=== PATIENT | female | born 1975 | race Hispanic/Latino ===

== ENCOUNTER 2017-05-10 17:50 | Emergency (ER) | payer MEDICAID ==
[2017-05-10 18:35] VITALS: RESP 18
--- NOTE | 2017-05-10 20:07 | ED PDOC ---
Arrival/HPI - General Chief Complaint: Abdominal Pain Time Seen by Provider: 05/10/17 19:52 Historian: Patient - History of Present Illness Narrative History of Present Illness (Text): 05/10/17 20:00 A 41 year old female, with no past medical history, presents to the emergency department complaining of abdominal pain. Patient reports she came from [facility] and had evaluation of symptom there. She was told she may have intestinal parasites or possible blockage. Patient is uncertain of exact result of tests. Patient states symptom began during [place]. Has been a resident of [place] for 6 years. Currently presents with abdominal discomfort and headache discomfort. Patient denies any fever, chills, vomiting, or any other complaints at this time. Patient has had small bowel movements. No PMD Past Medical History - Provider Review Nursing Documentation Reviewed: Yes - Infectious Disease Hx of Infectious Diseases: None - Psychiatric Hx Substance Use: No Family/Social History - Physician Review Nursing Documentation Reviewed: Yes Family/Social History: No Known Family HX Smoking Status: Light Smoker < 10 Cigarettes Daily Hx Alcohol Use: Yes Frequency of alcohol use: Socially Hx Substance Use: No Allergies/Home Meds Allergies/Adverse Reactions: Allergies latex Allergy (Verified 05/10/17 18:36) ANAPHYLAXIS Penicillins Allergy (Verified 05/10/17 18:36) ANAPHYLAXIS Sulfa Allergy (Uncoded 05/10/17 18:36) ANAPHYLAXIS Home Medications: Home Meds Medication Instructions Recorded Confirmed No Known Home Med 05/10/17 05/10/17 Review of Systems - Physician Review All systems were reviewed & negative as marked: Yes - Review of Systems Constitutional: absent: Fevers, Night Sweats Gastrointestinal: Abdominal Pain (abdominal discomfort). absent: Vomiting Neurological: Headache (headache discomfort) Physical Exam Vital Signs Reviewed: Yes Vital Signs Temp Pulse Resp BP Pulse Ox 05/10/17 23:31 98.3 F 71 18 114/66 100 05/10/17 18:29 98.8 F 83 18 117/76 99 Temperature: Afebrile Blood Pressure: Normal Pulse: Regular Respiratory Rate: Normal Appearance: Positive for: Well-Appearing Pain Distress: None Mental Status: Positive for: Alert and Oriented X 3 - Systems Exam Head: Present: Atraumatic, Normocephalic Pupils: Present: PERRL Extroacular Muscles: Present: EOMI Conjunctiva: Present: Normal Mouth: Present: Moist Mucous Membranes Neck: Present: Normal Range of Motion Respiratory/Chest: Present: Clear to Auscultation, Good Air Exchange. No: Respiratory Distress, Accessory Muscle Use Cardiovascular: Present: Regular Rate and Rhythm, Normal S1, S2. No: Murmurs Abdomen: Present: Normal Bowel Sounds. No: Tenderness, Distention, Peritoneal Signs Back: Present: Normal Inspection Upper Extremity: Present: Normal Inspection. No: Cyanosis, Edema Lower Extremity: Present: Normal Inspection. No: Edema Neurological: Present: GCS=15, CN II-XII Intact, Speech Normal Skin: Present: Warm, Dry, Normal Color. No: Rashes Psychiatric: Present: Alert, Oriented x 3, Normal Insight, Normal Concentration Medical Decision Making ED Course and Treatment: 05/10/17 20:05 Impression: 41 year old female with abdominal discomfort and headache discomfort. Physical exam is benign. Plan: -- Abd/Pelvis CT -- Head CT -- Chest X-ray -- Labs -- Urinalysis -- Reassess and disposition Progress Notes: 05/10/17 21:25 Reviewed radiology, Chest X-ray shows no acute processes. CT Head shows: Brain: No acute intracranial hemorrhage. No significant white matter disease. No edema. Ventricles: No significant ventriculomegaly. Bones: No acute displaced fracture. Sinuses: Unremarkable as visualized. No acute sinusitis. Mastoid air cells: Unremarkable as visualized. No mastoid effusion. IMPRESSION: No acute intracranial hemorrhage, or suspicious mass effect. 05/10/17 22:14 CT Abdomen and Pelvis shows: Lower thorax: The bilateral lung bases are clear. ABDOMEN: Liver: The liver is enlarged and demonstrates diffuse fatty infiltration. Gallbladder and bile ducts: The gallbladder is decompressed. No calcified stones. No significant intra- or extrahepatic biliary ductal dilation. Pancreas: Enhances homogeneously. No ductal dilation. No discrete mass. Spleen: No acute findings. Adrenals: No acute findings. Kidneys and ureters: No acute findings. No hydronephrosis or renal calculi. No discrete solid mass. PELVIS: Bladder: No acute findings. Reproductive: 2 involuting cysts within the right ovary, the largest measuring 19 mm in greatest dimension. Appendix: The appendix is of normal caliber (series 2, image 98) . ABDOMEN and PELVIS: Stomach and bowel: No obstruction. No mucosal thickening. Peritoneum: No significant fluid collection. No free air. Lymph nodes: No pathologically enlarged lymph nodes. Vasculature: Unremarkable. Bones: No acute fracture. IMPRESSION: 2 involuting cysts within the right ovary, for which pelvic ultrasound may be performed for confirmation (if the patient is clinically able). Normal appendix. 05/11/17 00:20 Stool for ovum/parasite cultures were to be ordered. Pt refusing to give stool sample at this time, states she would prefer to follow-up with infectious disease doctor outpt. - Lab Interpretations Lab Results: 05/10/17 19:50 05/10/17 19:50 Lab Results 05/10/17 19:50: Urine Color Yellow, Urine Appearance Clear, Urine pH 6.0, Ur Specific [place] >= 1.030, Urine Protein Negative, Urine Glucose (UA) Negative, Urine Ketones Negative, Urine Blood Small H, Urine Nitrate Negative, Urine Bilirubin Negative, Urine Urobilinogen 0.2, Ur Leukocyte Esterase Negative, Urine RBC 5 - 10, Urine WBC 2 - 5, Ur Epithelial Cells 4 - 5, Urine Bacteria Small, Urine Other Mucus, Urine HCG, Qual Negative 05/10/17 19:50: WBC 8.2, RBC 3.78, Hgb 11.5 L, Hct 35.7 L, MCV 94.4, MCH 30.4, MCHC 32.2, RDW 14.2, Plt Count 242, MPV 11.6 H, Gran % 58.9, Lymph % (Auto) 26.0 , Lyon % (Auto) 10.1 H, Eos % (Auto) 4.4, Baso % (Auto) 0.6, Gran # 4.54, Lymph # 2.0, Lyon # 0.8 H, Eos # 0.3, Baso # 0.05 05/10/17 19:50: Sodium 141, Potassium 3.4 L, Chloride 104, Carbon Dioxide 25, Anion Gap 15, BUN 15, Creatinine 0.8, Est GFR ( Amer) > 60, Est GFR (Non- Af Amer) > 60, Random Glucose 70, Calcium 9.1, Total Bilirubin 0.4, AST 20, ALT 30, Alkaline Phosphatase 45, Total Protein 7.4, Albumin 4.0, Globulin 3.4, Albumin/Globulin Ratio 1.2, Lipase 111 I have reviewed the lab results: Yes - RAD Interpretation Radiology Orders: 05/10/17 20:01 HEAD W/O CONTRAST [CT] Stat CHEST PORTABLE [RAD] Stat 05/10/17 20:02 ABD & PELVIS IV CONTRAST ONLY [CT] Stat Velvet Steamer: ED Physician, Radiologist - Medication Orders Current Medication Orders: Discontinued Medications Sodium Chloride (Sodium Chloride 0.9%) 1,000 mls @ 100 mls/hr IV .Q10H LAZARA Last Admin: 05/11/17 00:27 Dose: 100 mls/hr eMAR Start Stop Document 05/11/17 00:27 WILL (Rec: 05/11/17 00:27 WILL [id number]) Intravenous Solution Start Date 05/10/17 Start Time 20:50 End Date 05/11/17 End time 00:27 Total Infusion Time 217 Ketorolac Tromethamine (Toradol) 30 mg IVP ONCE ONE Stop: 05/10/17 22:18 Last Admin: 05/10/17 22:34 Dose: 30 mg MAR Pain Assessment Document 05/10/17 22:34 HI (Rec: 05/10/17 22:34 HI [id number]) Pain Reassessment Is this a pain reassessment? Yes Sleep Is patient sleeping during reassessment? No Presence of Pain Presence of Pain Yes Location Pain Location Body Site Abdomen IVP Administration Document 05/10/17 22:34 HI (Rec: 05/10/17 22:34 HI [id number]) Charges for Administration # of IVP Administrations 1 Potassium Chloride (K-Dur 20 Meq Er Tab) 20 meq PO STAT STA Stop: 05/10/17 22:45 Last Admin: 05/10/17 23:21 Dose: 20 meq - Scribe Statement The provider has reviewed the documentation as recorded by the Tomasz Deras Provider Scribe Attestation: All medical record entries made by the Tomasz were at my direction and personally dictated by me. I have reviewed the chart and agree that the record accurately reflects my personal performance of the history, physical exam, medical decision making, and the department course for this patient. I have also personally directed, reviewed, and agree with the discharge instructions and disposition. Disposition/Present on Arrival - Present on Arrival Any Indicators Present on Arrival: No History of DVT/PE: No History of Uncontrolled Diabetes: No Urinary Catheter: No History of Decub. Ulcer: No History Surgical Site Infection Following: None - Disposition Have Diagnosis and Disposition been Completed?: Yes Diagnosis: Abdominal pain Disposition: HOME/ ROUTINE Disposition Time: 00:25 Patient Plan: Discharge Condition: STABLE Discharge Instructions (ExitCare): Abdominal Pain (ED) Additional Instructions: Follow up with your doctor this week/any recurrent worsening symptoms return to the emergency room Referrals: Stephon Alanis MD [Staff Provider] - Follow up with primary PCP,NO [Primary Care Provider] - Follow up with primary Forms: [employer] (Estonian)
[2017-05-10] MEDS: Sodium Chloride 0.9% 1,000 ML IV SCH (20:13)
[2017-05-10 20:34] LABS: HEMATOCRIT 35.7 % (36.0-48.0); MEAN CELL VOLUME 94.4 fl (80.0-105.0); MEAN CORPUSCULAR HEMOGLOBIN 30.4 pg (25.0-35.0); MEAN CORPUSCULAR HGB CONC 32.2 g/dl (31.0-37.0); MEAN PLATELET VOLUME 11.6 fl (7.0-11.0); RED CELL DISTRIBUTION WIDTH 14.2 % (11.5-14.5); URINE BILIRUBIN NEGATIVE (NEGATIVE); URINE BLOOD SMALL (NEGATIVE); URINE GLUCOSE (UA) NEGATIVE (NEGATIVE); URINE KETONE NEGATIVE (NEGATIVE); URINE LEUKOCYTE ESTERASE NEGATIVE Leu/uL (NEGATIVE); URINE PROTEIN NEGATIVE mg/dL (<30 mg/dL); URINE UROBILINOGEN 0.2 E.U./dL (<1 E.U./dL); WHITE BLOOD COUNT 8.2 10^3/ul (4.5-11.0)
[2017-05-10 20:37] LABS: URINE APPEARANCE CLEAR (CLEAR); URINE COLOR YELLOW (YELLOW)
[2017-05-10 20:43] LABS: ALB/GLOB RATIO 1.2 (1.1-1.8); ALKALINE PHOSPHATASE 45 U/L (38-126); ALT/SGPT 30 U/L (7-56); AST/SGOT 20 U/L (14-36); BILIRUBIN,TOTAL 0.4 mg/dL (0.2-1.3); BLOOD UREA NITROGEN 15 mg/dL (7-21); CALCIUM 9.1 mg/dL (8.4-10.5); CARBON DIOXIDE 25 mmol/L (21-33); CHLORIDE 104 mmol/L (98-107); GFR AFRICAN-AMERICAN > 60; GLUCOSE,RANDOM 70 mg/dL (70-110); LIPASE 111 U/L (23-300); POTASSIUM 3.4 mmol/L (3.6-5.0); SODIUM 141 mmol/L (132-148); TOTAL PROTEIN 7.4 g/dL (5.8-8.3)
[2017-05-10 20:47] LABS: URINE BACTERIA SMALL (NEG)
[2017-05-10] MEDS ORDERED: Iohexol 350 MG/100 ML VIAL ONE (20:55)
--- NOTE | 2017-05-10 21:22 | CT ---
EXAM: CT Head Without Intravenous Contrast CLINICAL HISTORY: 41 years old, female; Pain; Headache; Tension TECHNIQUE: Axial computed tomography images of the head/brain without intravenous contrast. All CT scans at this facility use one or more dose reduction techniques, viz.: automated exposure control; ma/kV adjustment per patient size (including targeted exams where dose is matched to indication; i.e. head); or iterative reconstruction technique. COMPARISON: No relevant prior studies available. FINDINGS: Brain: No acute intracranial hemorrhage. No significant white matter disease. No edema. Ventricles: No significant ventriculomegaly. Bones: No acute displaced fracture. Sinuses: Unremarkable as visualized. No acute sinusitis. Mastoid air cells: Unremarkable as visualized. No mastoid effusion. IMPRESSION: No acute intracranial hemorrhage, or suspicious mass effect.
--- NOTE | 2017-05-10 22:11 | CT ---
EXAM: CT Abdomen and Pelvis With Intravenous Contrast CLINICAL HISTORY: 41 years old, female; Pain; Abdominal pain; Acute; Patient HX: Constipation TECHNIQUE: Axial computed tomography images of the abdomen and pelvis with intravenous contrast. All CT scans at this facility use one or more dose reduction techniques, viz.: automated exposure control; ma/kV adjustment per patient size (including targeted exams where dose is matched to indication; i.e. head); or iterative reconstruction technique. MIP reconstructed images were created and reviewed. Coronal and sagittal reformatted images were created and reviewed. CONTRAST: 100 mL of OMNI administered intravenously. COMPARISON: No relevant prior studies available. FINDINGS: Lower thorax: The bilateral lung bases are clear. ABDOMEN: Liver: The liver is enlarged and demonstrates diffuse fatty infiltration. Gallbladder and bile ducts: The gallbladder is decompressed. No calcified stones. No significant intra- or extrahepatic biliary ductal dilation. Pancreas: Enhances homogeneously. No ductal dilation. No discrete mass. Spleen: No acute findings. Adrenals: No acute findings. Kidneys and ureters: No acute findings. No hydronephrosis or renal calculi. No discrete solid mass. PELVIS: Bladder: No acute findings. Reproductive: 2 involuting cysts within the right ovary, the largest measuring 19 mm in greatest dimension. Appendix: The appendix is of normal caliber (series 2, image 98) . ABDOMEN and PELVIS: Stomach and bowel: No obstruction. No mucosal thickening. Peritoneum: No significant fluid collection. No free air. Lymph nodes: No pathologically enlarged lymph nodes. Vasculature: Unremarkable. Bones: No acute fracture. IMPRESSION: 2 involuting cysts within the right ovary, for which pelvic ultrasound may be performed for confirmation (if the patient is clinically able). Normal appendix.
[2017-05-10 22:33] LABS: BASO # 0.05 K/mm3 (0.0-2.0); BASO % 0.6 % (0.0-3.0); EOS # 0.3 (0.0-0.7); EOS % 4.4 % (1.5-5.0); GRAN # 4.54 (1.4-6.5); GRAN % 58.9 % (50.0-68.0); MONO # 0.8 (0.1-0.6); MONO % 10.1 % (1.0-6.0)
[2017-05-10] MEDS ORDERED: Potassium Chloride 20 mEq ER Tab PO STA (22:44)
[2017-05-10 23:32] VITALS: BP 114/66; PULSE 71; TEMP 98.3; O2SAT 100
[2017-05-11] MEDS: Sodium Chloride 0.9% 1,000 ML IV SCH (00:27)
--- NOTE | 2017-05-11 08:56 | RAD ---
HISTORY: abdominal pain COMPARISON: No prior. FINDINGS: LUNGS: No active pulmonary disease. PLEURA: No significant pleural effusion identified, no pneumothorax apparent. CARDIOVASCULAR: Normal. OSSEOUS STRUCTURES: No significant abnormalities. VISUALIZED UPPER ABDOMEN: Normal. OTHER FINDINGS: None. IMPRESSION: No active disease.
== END 2017-05-11 00:32 | disposition home or self-care (01) ==
LOC: ED 17:50
DX: R10.9 Unspecified abdominal pain (principal); F17.210 Nicotine dependence, cigarettes, uncomplicated; Z88.0 Allergy status to penicillin
CPT/HCPCS: 70450; 71010; 74177; 80053; 81001; 83690; 84703; 85025; 85027; 96360; 96361; 96374; 99284; J1885; J7040; Q9967

== ENCOUNTER 2017-05-14 12:42 | Emergency (ER) | payer MEDICAID ==
[2017-05-14 12:49] VITALS: BP 103/78; PULSE 95; RESP 18; TEMP 98.3; O2SAT 100
--- NOTE | 2017-05-14 14:12 | ED PDOC ---
Arrival/HPI - General Chief Complaint: Allergic Reaction Time Seen by Provider: 05/14/17 13:08 Historian: Patient - History of Present Illness Narrative History of Present Illness (Text): 05/14/17 41-year-old female presents today with concerns for allergic reaction. Patient states she was seen in the emergency room 2 days ago and had a CAT scan with IV contrast. Patient states she was fine and started to feel a little itchy and then today noticed that she had a rash on the chest the back and the extremities. Patient states she was feeling like she may have been having an itchy throat. Denies SOB at present time. Symptom Course: Worsening Quality: Other (itchy, no pain) Past Medical History - Provider Review Nursing Documentation Reviewed: Yes - Travel History Have you recently traveled outside [place] w/in the past 3 mons?: No - Infectious Disease Hx of Infectious Diseases: None - Psychiatric Hx Substance Use: No Family/Social History - Physician Review Nursing Documentation Reviewed: Yes Family/Social History: Unknown Family HX Smoking Status: Light Smoker < 10 Cigarettes Daily Hx Alcohol Use: Yes Hx Substance Use: No Allergies/Home Meds Allergies/Adverse Reactions: Allergies latex Allergy (Verified 05/14/17 12:49) ANAPHYLAXIS Penicillins Allergy (Verified 05/14/17 12:49) ANAPHYLAXIS Sulfa Allergy (Uncoded 05/14/17 12:49) ANAPHYLAXIS Review of Systems - Review of Systems Constitutional: absent: Fatigue, Fevers ENT: Sore Throat. absent: Sinus Congestion Respiratory: absent: SOB, Cough Cardiovascular: absent: Chest Pain, Palpitations Gastrointestinal: absent: Abdominal Pain, Nausea, Vomiting Genitourinary Female: absent: Dysuria, Frequency, Hematuria Musculoskeletal: absent: Arthralgias, Back Pain, Neck Pain Skin: Rash, Pruritis Neurological: absent: Headache, Dizziness Psychiatric: absent: Anxiety, Depression, Suicidal Ideation Physical Exam Vital Signs Reviewed: Yes Vital Signs Temp Pulse Resp BP Pulse Ox 05/14/17 12:46 98.3 F 95 H 18 103/78 100 05/14/17 12:42 98.3 F 95 H 18 103/78 100 Temperature: Afebrile Blood Pressure: Normal Pulse: Regular Respiratory Rate: Normal Appearance: Positive for: Well-Appearing, Non-Toxic, Comfortable Pain Distress: None Mental Status: Positive for: Alert and Oriented X 3 - Systems Exam Head: Present: Atraumatic Mouth: Present: Moist Mucous Membranes Pharnyx: Present: Normal. No: EXUDATE, Uvular Deviation, Muffled/Hoarse Voice, Strider Nose (External): Present: Atraumatic Nose (Internal): Present: Normal Inspection Neck: Present: Normal Range of Motion Respiratory/Chest: Present: Clear to Auscultation Cardiovascular: Present: Regular Rate and Rhythm Abdomen: No: Tenderness Upper Extremity: Present: Normal ROM Lower Extremity: Present: Normal ROM Neurological: Present: GCS=15, Speech Normal Skin: Present: Warm, Dry, Rashes (Multiple erythematous papules noted on the chest abdomen and upper extremities bilaterally.), Normal Color Psychiatric: Present: Alert, Oriented x 3 Medical Decision Making ED Course and Treatment: 05/14/17 Patient is nontoxic well-appearing in no distress with stable vital signs no angioedema. Lungs are clear to auscultation bilaterally there is no wheezing noted. The airway is patent. patient speaking in full sentences patient refused IV medications and patient refusing Benadryl. States she has to drive. Patient has agreed to take prednisone and Pepcid I've advised to take the Benadryl as soon as as she gets home from picking up her children. I advised taking Benadryl every 6 hours as needed for itch as well as prednisone daily x4 days. I advised taking Pepcid daily.Advised patient to follow up with primary care physician within the next 2 days and return if symptoms worsen persist or if new symptoms develop. Impression :Allergic reaction Benadryl every 6 hours as needed for itch Prednisone once daily x4 days Pepcid one tablet daily Follow up with the primary care physician tomorrow Return if symptoms worsen persist or if new symptoms develop: Shortness of breath, feeling of throat closing, difficulty speaking or any other concerning symptoms develop patient left emergency room without discharge papers. I called the patient using the cell phone number on the chart. Unable to leave voice mail. - Medication Orders Current Medication Orders: Discontinued Medications Famotidine (Pepcid) 20 mg PO STAT STA Stop: 05/14/17 13:09 Last Admin: 05/14/17 13:27 Dose: 20 mg Prednisone (Prednisone Tab) 60 mg PO STAT ONE Stop: 05/14/17 13:09 Last Admin: 05/14/17 13:27 Dose: 60 mg Disposition/Present on Arrival - Present on Arrival Any Indicators Present on Arrival: No History of DVT/PE: No History of Uncontrolled Diabetes: No Urinary Catheter: No History of Decub. Ulcer: No History Surgical Site Infection Following: None - Disposition Have Diagnosis and Disposition been Completed?: Yes Diagnosis: Allergic reaction Disposition: HOME/ ROUTINE Disposition Time: 13:40 Patient Plan: Discharge Condition: GOOD Discharge Instructions (ExitCare): General Allergic Reaction (ED) Additional Instructions: Benadryl every 6 hours as needed for itch Prednisone once daily x4 days Pepcid one tablet daily Follow up with the primary care physician tomorrow Return if symptoms worsen persist or if new symptoms develop: Shortness of breath, feeling of throat closing, difficulty speaking or any other concerning symptoms develop Prescriptions: DiphenhydrAMINE [Benadryl] 25 mg PO Q6H #20 cap Famotidine [Pepcid] 20 mg PO DAILY #30 tab predniSONE [predniSONE Tab] 3 tab PO DAILY #12 tab Referrals: Parveen Villar MD [Staff Provider] - Follow up with primary Yary Crowley MD [Medical Doctor] - Follow up with primary Ronald Donovan MD [Staff Provider] - Follow up with primary Forms: [employer] (Arabic)
== END 2017-05-14 13:40 | disposition home or self-care (01) ==
LOC: ED 12:42
DX: T78.49XA Other allergy, initial encounter (principal); X58.XXXA Exposure to other specified factors, initial encounter